=== PATIENT | male | born 1960 | race Caucasian/White ===

== ENCOUNTER 2022-10-29 13:04 | Outpatient (CLI) | payer MEDICARE, MEDICAID | END 2022-10-29 13:05 | disposition home or self-care (01) | LOC: LAB.N 13:04 | PROVIDERS: ATTEND Urology | DX: Z87.898 Personal history of other specified conditions (principal); Z12.5 Encounter for screening for malignant neoplasm of prostate | CPT/HCPCS: 36415; 84153 ==

== ENCOUNTER 2022-11-13 15:14 | Outpatient (CLI) | payer MEDICARE, MEDICAID ==
[~2022-11-13 15:14] MED LIST: GADOBUTROL 7.5 MMOL/7.5 ML VIAL ONE
[2022-11-13 15:35] LABS: CREATININE 1.1 mg/dL (0.6-1.2)
[2022-11-13] MEDS ORDERED: GADOBUTROL 7.5 MMOL/7.5 ML VIAL IVP ONE (19:47)
--- NOTE | 2022-11-14 09:44 | MRI Report ---
PROCEDURE: PELVIS W/WO INDICATIONS: Elevated PSA CONTRAST: GADAVIST 6.4ML TECHNIQUE: Coronal ultra fast SE, axial T1 FSE with fat saturation, 3-plane nonbreath-hold T2 FSE. After the ad ministration of contrast, dynamic axial, delayed axial and coronal ultra fast GE or 2-D spoiled GE wi th fat saturation through the pelvis. Diffusion weighted imaging and ADC may be performed. COMPARISON: None FINDINGS: Image quality: Diffusion weighted and dynamic contrast enhanced images are diagnostic. Prostate: Gland size is 4.5 x 3.1 x 3.1 cm cm; ellipsoid gland volume is 22.5 mL. Prostate lesions: Transitional zone heterogenous nodules are present, either well encapsulated or mostly encapsulated, compatible with PI-RADS 1 or 2 likely BPH nodules. Mildly T2 hypointense heterogenous striated appear ance of the peripheral zone is commonly seen with current or prior prostatitis, PI-RADS 2 In the right mid and apex transitional zone, there is a 14 x 12 mm T2 hypointense lesion, likely also involving the anterior fibromuscular stroma. T2 score 4. DWI score 4. DCE positive. Pi RADS 4. Reference image 12/29, 01/25. No definite extra capsular extension or seminal vesicle involvement. Genitourinary system: Bladder is partially visualized, overall unremarkable. Bowel and peritoneum: No pathologic ascites or bowel obstruction detected. Nodes and vessels: No aneurysmal vessel or adenopathy by size criteria. Small pelvic lymph nodes are indeterminate in the setting of possible prostate malignancy. Soft tissues: No inguinal hernias. Bones: No acute or suspicious osseous finding. IMPRESSION: PI-RADS 4 lesion in the right mid and apex transitional zone, possibly also involving the anterior fi bromuscular stroma, as described above. No evidence of seminal vesicle involvement. No definite extra capsular extension. Reviewed by: Torres Lerner MD on 11/14/2022 9:42 AM PDT Approved by: Torres Lerner MD on 11/14/2022 9:42 AM PDT Station ID: [id number]
== END 2022-11-13 15:15 | disposition home or self-care (01) ==
LOC: LAB 15:14
PROVIDERS: ATTEND Urology
DX: Z12.5 Encounter for screening for malignant neoplasm of prostate (principal); Z87.898 Personal history of other specified conditions; N42.89 Other specified disorders of prostate
CPT/HCPCS: 36415; 72197; 82565; A9585

== ENCOUNTER 2024-02-09 13:14 | Outpatient (CLI) | payer MEDICARE, MEDICAID | END 2024-02-09 13:15 | disposition home or self-care (01) | LOC: LAB.N 13:14 | PROVIDERS: ATTEND Urology | DX: C61 Malignant neoplasm of prostate (principal) | CPT/HCPCS: 36415; 84153 ==